=== PATIENT | male | born 1995 | race Native Hawaiian/Other Pacific Islander ===

== ENCOUNTER 2021-11-26 08:54 | Emergency (ER) | payer OTHER ==
[~2021-11-26] VITALS: Ht 180.3 cm; Wt 75.0 kg
[2021-11-26 11:43] VITALS: BP 133/78
== END 2021-11-26 11:48 | disposition home or self-care (01) ==
LOC: EMS 08:58
DX: R07.89 Other chest pain (principal); F17.210 Nicotine dependence, cigarettes, uncomplicated; F12.90 Cannabis use, unspecified, uncomplicated; L91.0 Hypertrophic scar; Z59.00 Homelessness unspecified
CPT/HCPCS: 71045; 93005; 99283